=== PATIENT | female | born 1960 | race Hispanic/Latino ===

== ENCOUNTER 2017-07-18 12:03 | Emergency (ER) | payer MEDICARE ==
[2017-07-18 12:03] VITALS: BMI 29.2
[2017-07-18 12:12] VITALS: TEMP 98.2
[2017-07-18] MEDS ORDERED: Albuterol-Ipratrop 3 mg / 0.5 (3 ml) UD IH STA (13:07)
[2017-07-18] MEDS ORDERED: Albuterol-Ipratrop 3 mg / 0.5 (3 ml) UD ONE (13:21)
--- NOTE | 2017-07-18 14:47 | C.PDOC ---
History Of Present Illness Pt c/o atraumatic left shoulder pain. Time Seen by Provider: 07/18/17 12:55 Chief Complaint (Nursing): Upper Extremity Problem/Injury History Per: Patient Onset/Duration Of Symptoms: Days (about 1 week) Current Symptoms Are (Timing): Still Present Quality: "Pain" Severity: Moderate Exacerbating Factor(s): Movement Additional History Per: Prior Records Past Medical History Reviewed: Historical Data, Nursing Documentation, Vital Signs Vital Signs: Last Vital Signs Temp 98.2 F 07/18/17 12:07 Pulse 85 07/18/17 12:07 Resp 18 07/18/17 12:07 BP 107/74 07/18/17 12:07 Pulse Ox 94 L 07/18/17 12:07 - Medical History PMH: Arthritis (left shoulder), Asthma, Bronchitis, COPD, Diabetes, Emphysema, Gall Bladder Disease (cholecysectomy), Hypercholesterolemia, Pneumonia, TIA Surgical History: Cholecystectomy - [facility] Procedures BILAT ENDOS OCC TUBE NEC (04/09/99) ESOPHAGOGASTRODUODENOSCOPY [EGD] W/CLOSED BIOPSY (05/01/06) INJECT/INFUSE NEC (05/04/06) INTRODUCTION OF SERUM/TOX/VACCINE INTO MUSCLE, PERC APPROACH (11/11/15) Family History: States: [place] (brother a short while ago) - Social History Hx Tobacco Use: Yes Hx Alcohol Use: No Hx Substance Use: No - Immunization History Hx Tetanus Toxoid Vaccination: No Hx Influenza Vaccination: Yes Hx Pneumococcal Vaccination: Yes Review Of Systems Except As Marked, All Systems Reviewed And Found Negative. Constitutional: Negative for: Fever, Weakness Cardiovascular: Negative for: Chest Pain Respiratory: Positive for: Wheezing. Negative for: Hemoptysis Gastrointestinal: Negative for: Vomiting, Abdominal Pain Musculoskeletal: Positive for: Shoulder Pain (left). Negative for: Neck Pain Skin: Negative for: Rash Neurological: Negative for: Weakness, Numbness Physical Exam - Physical Exam Appears: Non-toxic, No Acute Distress Skin: Normal Color, Warm, Dry, No Rash Head: Atraumatic, Normacephalic Eye(s): bilateral: Normal Inspection, PERRL, EOMI Neck: Normal ROM, Supple Cardiovascular: Rhythm Regular Respiratory: No Accessory Muscle Use, Wheezing (mild scattered) Gastrointestinal/Abdominal: Soft, No Tenderness Back: No CVA Tenderness Extremity: No Tenderness, No Pedal Edema, No Calf Tenderness, No Deformity, No Swelling Extremity: Left: Limited ROM To Joint (Shoulder, due to pain.), Bilateral: Normal Color And Temperature Pulses: Left Radial: Normal Neurological/Psych: Oriented x3, Normal Motor, Normal Sensation ED Course And Treatment O2 Sat by Pulse Oximetry: 94 Pulse Ox Interpretation: Normal - Radiology CXR: Interpreted by Me, Viewed By Me CXR Interpretation: Yes: No Acute Disease Progress Note: Pt was placed in an left arm sling by me. Progress - Interventions Interventions:: Observation - Medications Administered Oral: Corticosteriod Inhaled nebulized: Anticholinergic, Beta-2 agonist - Data Reviewed Data Reviewed: Diagnostic imaging, Old records - Patient Status Patient status: Mostly improved - Continuity of Care Discussed patient case with:: Patient, ED Nurse - Patient Plan Patient Plan: Discharge, F/U with PCP, Continue present meds Disposition Counseled Patient/Family Regarding: Studies Performed, Diagnosis, Need For Followup, Rx Given, Smoking Cessation - Disposition Referrals: Naresh Quijano MD [Staff Provider] - Mae Dhaliwal MD [Staff Provider] - Disposition: HOME/ ROUTINE Disposition Time: 14:48 Condition: STABLE Additional Instructions: Follow up with your doctor within 1-2 days. Follow up with an orthopedic surgeon. Return to the ER if you develop redness, swelling, fever, shortness of breath, worsening of symptoms or if you have any other concerns. Prescriptions: Prednisone 50 mg PO DAILY #5 tablet Instructions: Calcific Tendinitis (ED), COPD (Chronic Obstructive Pulmonary Disease) (ED) Forms: [employer] ([place]) - Clinical Impression Clinical Impression: COPD (chronic obstructive pulmonary disease), Calcific tendinitis of left shoulder
[2017-07-18 14:59] VITALS: BP 123/70; PULSE 81; RESP 20; O2SAT 92
--- NOTE | 2017-07-18 16:01 | RAD ---
PROCEDURE: CHEST RADIOGRAPH, 1 VIEW HISTORY: Wheezing, left shoulder pain COMPARISON: 11/11/2015. FINDINGS: LUNGS: Clear. PLEURA: No pneumothorax or pleural fluid seen. CARDIOVASCULAR: No radiographic findings to suggest acute or significant cardiovascular disease. OSSEOUS STRUCTURES: No significant abnormalities. VISUALIZED UPPER ABDOMEN: Normal. OTHER FINDINGS: None. IMPRESSION: No active disease. No acute/significant interval changes.
== END 2017-07-18 14:59 | disposition home or self-care (01) ==
LOC: C.ER 12:03
DX: M75.32 Calcific tendinitis of left shoulder (principal); J44.9 Chronic obstructive pulmonary disease, unspecified; E11.9 Type 2 diabetes mellitus without complications; E78.00 Pure hypercholesterolemia, unspecified; M19.012 Primary osteoarthritis, left shoulder

== ENCOUNTER 2017-11-27 16:21 | Observation (INO) | payer MEDICARE ==
[2017-11-27 16:22] VITALS: BMI 29.2
[2017-11-27] MEDS ORDERED: Albuterol-Ipratrop 3 mg / 0.5 (3 ml) UD INH STA ×2 (17:02→18:43)
[2017-11-27 17:27] LABS: BASO # 0.1 K/uL (0.0-0.2); BASO % 0.7 % (0.0-2.0); EOS # 0.4 K/uL (0.0-0.7); EOS % 2.3 % (0.0-4.0); HEMOGLOBIN 14.3 g/dL (11.0-16.0); LYMPH # 4.7 K/uL (1.0-4.3); LYMPH % 26.1 % (20.0-40.0); MEAN CORPUSCULAR HEMOGLOBIN 30.1 pg (27.0-31.0); MEAN CORPUSCULAR HGB CONC 33.8 g/dL (33.0-37.0); MONO # 1.4 K/uL (0.0-0.8); MONO % 7.7 % (0.0-10.0); NEUT # 11.4 K/uL (1.8-7.0); NEUT % 63.2 % (50.0-75.0); NRBC % 0.1 % (0.0-2.0); RBC 4.75 Mil/uL (3.80-5.20); RED CELL DISTRIBUTION WIDTH 14.5 % (11.5-14.5); WHITE BLOOD COUNT 18.1 K/uL (4.8-10.8)
[2017-11-27 17:28] LABS: PROTHROMBIN TIME 10.7 SECONDS (9.7-12.2)
[2017-11-27 17:40] LABS: BLOOD UREA NITROGEN 11 mg/dL (7-17); GFR AFRICAN-AMERICAN > 60; GFR NON-AFRICAN AMERICAN > 60
[2017-11-27 17:41] LABS: ALB/GLOB RATIO 1.2 (1.0-2.1); ALBUMIN 3.7 g/dL (3.5-5.0); ALT/SGPT 25 U/L (9-52); AST/SGOT 17 U/L (14-36); CALCIUM 8.6 mg/dl (8.6-10.4)
[2017-11-27] MEDS ORDERED: Albuterol-Ipratrop 3 mg / 0.5 (3 ml) UD ONE (17:46)
[2017-11-27 17:52] LABS: B-TYPE NATRIURETIC PEPTIDE 182 pg/mL (0-900)
[2017-11-27 17:54] LABS: ABG ALLEN TEST POS; ARTERIAL BLOOD GAS HCO3 27.8 mmol/L (21-28); ARTERIAL BLOOD GAS O2 SAT 99.3 % (95-98); ARTERIAL BLOOD GAS PCO2 52 mm/Hg (35-45); ARTERIAL BLOOD GAS PH 7.37 (7.35-7.45); ARTERIAL BLOOD GAS PO2 218 mm/Hg (80-100); ARTERIAL BLOOD GAS TCO2 31.7 mmol/L (22-28)
--- NOTE | 2017-11-27 18:00 | C.PDOC ---
History Of Present Illness 57 y/o female, with history of COPD, presents to the ER complaining of shortness of breath which has been worsening over the past week. Patient reports that she still smokes a pack of cigarettes each day. Patient reports that she has been using steroids and a Z-Pack for the past 3 days. She has been undergoing 4 nebulizer treatments each day and 2 amps each day for the past 2 days. Patient does not have any other complaints. Time Seen by Provider: 11/27/17 16:44 Chief Complaint (Nursing): Respiratory Distress History Per: Patient History/Exam Limitations: no limitations Onset/Duration Of Symptoms: Days Severity: Moderate Past Medical History Reviewed: Historical Data, Nursing Documentation, Vital Signs Vital Signs: Last Vital Signs Temp 98 F 11/27/17 16:48 Pulse 81 11/27/17 18:35 Resp 18 11/27/17 18:35 BP 99/45 L 11/27/17 18:35 Pulse Ox 92 L 11/27/17 18:46 - Medical History PMH: Arthritis (left shoulder), Asthma, Bronchitis, COPD, Diabetes, Emphysema, Gall Bladder Disease (cholecysectomy), Hypercholesterolemia, Pneumonia, TIA Denies: Chronic Kidney Disease Surgical History: Cholecystectomy - [facility] Procedures BILAT ENDOS OCC TUBE NEC (04/09/99) ESOPHAGOGASTRODUODENOSCOPY [EGD] W/CLOSED BIOPSY (05/01/06) INJECT/INFUSE NEC (05/04/06) INTRODUCTION OF SERUM/TOX/VACCINE INTO MUSCLE, PERC APPROACH (11/11/15) Family History: States: [place] (brother a short while ago) - Social History Hx Tobacco Use: Yes Hx Alcohol Use: No Hx Substance Use: No - Immunization History Hx Tetanus Toxoid Vaccination: No Hx Influenza Vaccination: Yes Hx Pneumococcal Vaccination: Yes Review Of Systems Except As Marked, All Systems Reviewed And Found Negative. Constitutional: Negative for: Fever, Chills Respiratory: Positive for: Shortness of Breath. Negative for: Cough Physical Exam - Physical Exam Appears: Non-toxic, No Acute Distress Skin: Normal Color, Warm Head: Atraumatic, Normacephalic Eye(s): bilateral: Normal Inspection, PERRL Nose: Normal Oral Mucosa: Moist Neck: Supple Chest: Symmetrical Cardiovascular: Rhythm Regular Respiratory: Normal Breath Sounds, Decreased Breath Sounds, No Accessory Muscle Use, No Rales, No Rhonchi, Wheezing (expiratory wheezing) Extremity: Normal ROM Neurological/Psych: Oriented x3, Normal Speech, Normal Cognition, Normal Motor, Normal Sensation ED Course And Treatment - Laboratory Results Result Diagrams: 11/27/17 17:14 11/27/17 17:14 Lab Interpretation: Abnormal ([id number] leukocytosis, prob steroid related. ABG without C02 retention, chronically compenated) ECG: Interpreted By Me ECG Rhythm: Sinus Rhythm ECG Interpretation: Normal Rate From EC O2 Sat by Pulse Oximetry: 92 Pulse Ox Interpretation: Abnormal - Radiology CXR: Interpreted by Me CXR Interpretation: Yes: Other (+ mild CHF, + hyperinflated) Progress Note: lasix 20 IV, Vapotherm, Solumedrol IV, Duoneb treatments. Reevaluation Time: 18:44 Reassessment Condition: Improved - Physician Consult Information Outcome Of Conversation: 1835: d/w Hospitalist- Dr. Benitez mejias to admit to Dr. Cano- [place] [place]. Critical Care Time - Critical Care Note Total Time (in mins): 90 Documented critical care: time excludes all time spent performing seperately billable procedures. Medical Decision Making Medical Decision Making: copd exacerbation, still smoking 1 ppd mild leukocytosis prob due to steroids started 3 days ago Hold abx as pt already on Z-pack x 3 days. Mild CHF noted on CXR- lasix given re-eval after diuresis 03/22: normal myocardial perfusion scan, normal EJF w Dr. Palacios. Disposition Doctor Will See Patient In The: Hospital Counseled Patient/Family Regarding: Studies Performed, Diagnosis - Disposition Disposition: HOSPITALIZED Disposition Time: 18:45 Condition: FAIR Forms: [employer] (Yakut) - Clinical Impression Clinical Impression: COPD exacerbation, Congestive heart failure - Scribe Statement The provider has reviewed the documentation as recorded by the Rickey Barlow Provider Attestation: All medical record entries made by the Scribe were at my direction and personally dictated by me. I have reviewed the chart and agree that the record accurately reflects my personal performance of the history, physical exam, medical decision making, and the department course for this patient. I have also personally directed, reviewed, and agree with the discharge instructions and disposition.
--- NOTE | 2017-11-27 19:25 | CP.PCM.HP ---
<Delmis Rojas - Last Filed: 11/28/17 05:07> History of Present Illness - History of Present Illness History of Present Illness: Medicine Note for Hospitalist Service CC: Shortness of breath HPI: Patient is a 57-year-old female with a PMHx of COPD, Asthma, and Bronchitis who presents to the ED with complaints of progressive shortness of breath. Patient states her symptoms started a week ago and have been getting worse since then. She felt feverish on so on Monday she saw her PMD, Dr. Quijano. Her PMD gave her steroids and a Z-pack which she has been using for the past 3 days. She has been undergoing 4 nebulizer treatments each day and using her albuterol inhaler every few hours for the past 2 days. At baseline she does not use her albuterol or any nebulizer treatment. Patient denies any sick contacts. Reports receiving her yearly flu shot. Patient has been coughing up dark yellow/green phlegm for the past week. Denies any home O2 use. Patient uses 4 pillows to sleep at night for the past few weeks and says that if she sleeps flat, she feels like she will suffocate. She also has leg swelling for the past few months. Prior to this exacerbation, she could breathe normally at rest, but would be short of breath with minimal exertion, walking 1-2 blocks. Denied fever, chills, headache, chest pain, abdominal pain, n/v/d/c, or urinary symptoms. PMHx: COPD, Asthma, and Bronchitis, TIA (2008) PSHx: Denied Meds: As per JAN, reviewed and confirmed All: NKDA SHx: Admits smoking 1 PPD x 15-20 years (no intention of stopping), social ETOH use, no illicit drug use FHx: Unremarkable PMD: Macie Cardio: Philip Pulm: Dr. Rogel Present on Admission - Present on Admission Any Indicators Present on Admission: No Past Patient History - Infectious Disease Hx of Infectious Diseases: None - Past Medical History & Family History Past Medical History?: Yes - Past Social History Smoking Status: Light Smoker < 10 Cigarettes Daily - CARDIAC Hx Hypercholesterolemia: Yes - PULMONARY Hx Asthma: Yes Hx Bronchitis: Yes Hx Chronic Obstructive Pulmonary Disease (COPD): Yes Hx Emphysema: Yes Hx Pneumonia: Yes - NEUROLOGICAL Hx Transient Ischemic Attacks (TIA): Yes - HEENT Hx HEENT Problems: Yes Hx Glaucoma: Yes - RENAL Hx Chronic Kidney Disease: No - ENDOCRINE/METABOLIC Hx Endocrine Disorders: Yes Hx Diabetes Mellitus Type 2: Yes (when she was ) Other/Comment: Gestational Diabetes - HEMATOLOGICAL/ONCOLOGICAL Hx Blood Disorders: No - INTEGUMENTARY Hx Dermatological Problems: Yes Hx Psoriasis: Yes - MUSCULOSKELETAL/RHEUMATOLOGICAL Hx Arthritis: Yes (left shoulder) - GASTROINTESTINAL Hx Gall Bladder Disease: Yes (cholecysectomy) - GENITOURINARY/GYNECOLOGICAL Hx Genitourinary Disorders: No - PSYCHIATRIC Hx Substance Use: No - SURGICAL HISTORY Hx Cholecystectomy: Yes - ANESTHESIA Hx Anesthesia: Yes Hx Anesthesia Reactions: No Meds Allergies/Adverse Reactions: Allergies Allergy/AdvReac Type Severity Reaction Status Date / Time No Known Allergies Allergy Verified 10/09/16 13:56 Physical Exam - Constitutional Appears: No Acute Distress - Head Exam Head Exam: NORMAL INSPECTION, NORMOCEPHALIC - Eye Exam Eye Exam: EOMI, Normal appearance, PERRL Pupil Exam: NORMAL ACCOMODATION - ENT Exam ENT Exam: Mucous Membranes Moist - Respiratory Exam Respiratory Exam: Wheezes, NORMAL BREATHING PATTERN. absent: Rales, Rhonchi - Cardiovascular Exam Cardiovascular Exam: REGULAR RHYTHM - GI/Abdominal Exam GI & Abdominal Exam: Normal Bowel Sounds, Soft. absent: Distended, Tenderness - Extremities Exam Extremities exam: Positive for: normal inspection, pedal edema (+1 bilaterally ) , pedal pulses present. Negative for: tenderness - Neurological Exam Neurological exam: Alert, CN II-XII Intact, Oriented x3 - Skin Skin Exam: Dry, Intact, Normal Color, Warm Results - Vital Signs Recent Vital Signs: Last Vital Signs Temp 98 F 11/27/17 16:48 Pulse 81 11/27/17 18:35 Resp 18 11/27/17 18:35 BP 99/45 L 11/27/17 18:35 Pulse Ox 92 L 11/27/17 18:49 - Labs Result Diagrams: 11/27/17 17:14 11/27/17 17:14 Labs: Laboratory Results - last 24 hr 11/27/17 11/27/17 11/27/17 17:01 17:14 17:14 WBC 18.1 H RBC 4.75 Hgb 14.3 Hct 42.3 MCV 89.0 MCH 30.1 MCHC 33.8 RDW 14.5 Plt Count 338 D MPV 8.0 Neut % (Auto) 63.2 Lymph % (Auto) 26.1 Lake % (Auto) 7.7 Eos % (Auto) 2.3 Baso % (Auto) 0.7 Neut # 11.4 H Lymph # 4.7 H Lake # 1.4 H Eos # 0.4 Baso # 0.1 PT 10.7 INR 1.0 APTT 31 Puncture Site pCO2 pO2 HCO3 ABG pH ABG Total CO2 ABG O2 Saturation ABG Base Excess Eladio Test ABG Potassium A-a O2 Difference Respiratory Index Glucose Lactate Liter Flow FiO2 Sodium Potassium Chloride Carbon Dioxide Anion Gap BUN Creatinine Est GFR ( Amer) Est GFR (Non-Af Amer) Random Glucose Calcium Total Bilirubin AST ALT Alkaline Phosphatase Troponin I NT-Pro-B Natriuret Pep Total Protein Albumin Globulin Albumin/Globulin Ratio Arterial Blood Potassium Influenza Typ A,B (EIA) Negative for flu a/b 11/27/17 11/27/17 17:14 17:51 WBC RBC Hgb Hct MCV MCH MCHC RDW Plt Count MPV Neut % (Auto) Lymph % (Auto) Lake % (Auto) Eos % (Auto) Baso % (Auto) Neut # Lymph # Lake # Eos # Baso # PT INR APTT Puncture Site Rr pCO2 52 H pO2 218 H HCO3 27.8 ABG pH 7.37 ABG Total CO2 31.7 H ABG O2 Saturation 99.3 H ABG Base Excess 3.6 H Eladio Test Pos ABG Potassium 2.9 L A-a O2 Difference 430.0 Respiratory Index 2.0 Glucose 95 Lactate 1.0 Liter Flow 15.0 FiO2 100.0 Sodium 138 139.0 Potassium 3.4 L Chloride 100 107.0 Carbon Dioxide 33 H Anion Gap 9 L BUN 11 Creatinine 0.6 L Est GFR ( Amer) > 60 Est GFR (Non-Af Amer) > 60 Random Glucose 101 Calcium 8.6 Total Bilirubin 0.3 AST 17 ALT 25 Alkaline Phosphatase 86 Troponin I < 0.0120 NT-Pro-B Natriuret Pep 182 Total Protein 6.8 Albumin 3.7 Globulin 3.0 Albumin/Globulin Ratio 1.2 Arterial Blood Potassium 2.9 L Influenza Typ A,B (EIA) Assessment & Plan - Assessment and Plan (Free Text) Assessment: Patient is a 57-year-old female with a PMHx of COPD, Asthma, and Bronchitis who presents to the ED with complaints of progressive shortness of breath. Plan: COPD Exacerbation CXR: no infiltrate, consolidation noted Negative Flu Meds: Solumedrol 40mg Q8H (will taper based on clinical exam) Duonebs Q6H LESLEY, Albuterol QR3 prn Pulmicort Q12, Singulair 10mg PO QHS Doxycycline 100mg PO Q12 x 5 days Probable Underlying CHF MATHEW, No JVD noted, no S3 noted on exam, +1 BL LLE Edema, sleeps on 2 BNP- 182 CXR: no infiltrate, consolidation noted F/U ECHO: Leukocytosis 2/2 oral steroids provided by PMD Hx TIA Prophylactic Measures GI PPX: Pepcid 20mg PO BID DVT PPX: SCDs, Lovenox 40mg SC PT Eval DW Dr. Cano, Delmis Rojas DO, PGY-1 <Hammad Cano P - Last Filed: 11/28/17 07:16> Results - Vital Signs Recent Vital Signs: Last Vital Signs Temp 97.9 F 11/27/17 23:10 Pulse 73 11/28/17 00:00 Resp 20 11/28/17 05:57 BP 106/66 11/27/17 23:10 Pulse Ox 95 11/28/17 05:57 - Labs Result Diagrams: 11/28/17 06:05 11/28/17 06:05 Labs: Laboratory Results - last 24 hr 11/27/17 11/27/17 11/27/17 17:01 17:14 17:14 WBC 18.1 H RBC 4.75 Hgb 14.3 Hct 42.3 MCV 89.0 MCH 30.1 MCHC 33.8 RDW 14.5 Plt Count 338 D MPV 8.0 Neut % (Auto) 63.2 Lymph % (Auto) 26.1 Lake % (Auto) 7.7 Eos % (Auto) 2.3 Baso % (Auto) 0.7 Neut # 11.4 H Lymph # 4.7 H Lake # 1.4 H Eos # 0.4 Baso # 0.1 PT 10.7 INR 1.0 APTT 31 Puncture Site pCO2 pO2 HCO3 ABG pH ABG Total CO2 ABG O2 Saturation ABG Base Excess Eladio Test ABG Potassium A-a O2 Difference Respiratory Index Glucose Lactate Liter Flow FiO2 Sodium Potassium Chloride Carbon Dioxide Anion Gap BUN Creatinine Est GFR ( Amer) Est GFR (Non-Af Amer) Random Glucose Calcium Phosphorus Magnesium Total Bilirubin AST ALT Alkaline Phosphatase Troponin I NT-Pro-B Natriuret Pep Total Protein Albumin Globulin Albumin/Globulin Ratio Arterial Blood Potassium Urine Color Urine Clarity Urine pH Ur Specific [place] Urine Protein Urine Glucose (UA) Urine Ketones Urine Blood Urine Nitrate Urine Bilirubin Urine Urobilinogen Ur Leukocyte Esterase Urine WBC (Auto) Influenza Typ A,B (EIA) Negative for flu a/b 11/27/17 11/27/17 11/27/17 17:14 17:51 21:24 WBC RBC Hgb Hct MCV MCH MCHC RDW Plt Count MPV Neut % (Auto) Lymph % (Auto) Lake % (Auto) Eos % (Auto) Baso % (Auto) Neut # Lymph # Lake # Eos # Baso # PT INR APTT Puncture Site Rr pCO2 52 H pO2 218 H HCO3 27.8 ABG pH 7.37 ABG Total CO2 31.7 H ABG O2 Saturation 99.3 H ABG Base Excess 3.6 H Eladio Test Pos ABG Potassium 2.9 L A-a O2 Difference 430.0 Respiratory Index 2.0 Glucose 95 Lactate 1.0 Liter Flow 15.0 FiO2 100.0 Sodium 138 139.0 Potassium 3.4 L Chloride 100 107.0 Carbon Dioxide 33 H Anion Gap 9 L BUN 11 Creatinine 0.6 L Est GFR ( Amer) > 60 Est GFR (Non-Af Amer) > 60 Random Glucose 101 Calcium 8.6 Phosphorus Magnesium Total Bilirubin 0.3 AST 17 ALT 25 Alkaline Phosphatase 86 Troponin I < 0.0120 NT-Pro-B Natriuret Pep 182 Total Protein 6.8 Albumin 3.7 Globulin 3.0 Albumin/Globulin Ratio 1.2 Arterial Blood Potassium 2.9 L Urine Color Straw Urine Clarity Clear Urine pH 5.0 Ur Specific [place] 1.006 Urine Protein Negative Urine Glucose (UA) Normal Urine Ketones Negative Urine Blood Negative Urine Nitrate Negative Urine Bilirubin Negative Urine Urobilinogen Normal Ur Leukocyte Esterase Neg Urine WBC (Auto) < 1 Influenza Typ A,B (EIA) 11/28/17 11/28/17 06:05 06:05 WBC 11.0 H RBC 4.64 Hgb 14.0 Hct 41.7 MCV 89.9 MCH 30.3 MCHC 33.7 RDW 14.0 Plt Count 270 MPV 8.4 Neut % (Auto) 89.9 H Lymph % (Auto) 8.5 L Lake % (Auto) 1.2 Eos % (Auto) 0.0 Baso % (Auto) 0.4 Neut # 9.9 H Lymph # 0.9 L Lake # 0.1 Eos # 0.0 Baso # 0.0 PT INR APTT Puncture Site pCO2 pO2 HCO3 ABG pH ABG Total CO2 ABG O2 Saturation ABG Base Excess Eladio Test ABG Potassium A-a O2 Difference Respiratory Index Glucose Lactate Liter Flow FiO2 Sodium 136 Potassium 4.6 Chloride 97 L Carbon Dioxide 31 H Anion Gap 12 BUN 18 H Creatinine 0.7 Est GFR ( Amer) > 60 Est GFR (Non-Af Amer) > 60 Random Glucose 140 H Calcium 8.3 L Phosphorus 4.6 H Magnesium 1.7 Total Bilirubin 0.7 AST 14 ALT 25 Alkaline Phosphatase 84 Troponin I NT-Pro-B Natriuret Pep Total Protein 6.4 Albumin 3.5 Globulin 2.9 Albumin/Globulin Ratio 1.2 Arterial Blood Potassium Urine Color Urine Clarity Urine pH Ur Specific [place] Urine Protein Urine Glucose (UA) Urine Ketones Urine Blood Urine Nitrate Urine Bilirubin Urine Urobilinogen Ur Leukocyte Esterase Urine WBC (Auto) Influenza Typ A,B (EIA) Attending/Attestation - Attestation I have personally seen and examined this patient.: Yes I have fully participated in the care of the patient.: Yes I have reviewed all pertinent clinical information: Yes Notes (Text): Assessment * SOB likely from COPD emphysema, patient approaching moderate to severe persisting disease, suspected corpulmonale * Continues to smoke 1PPD Plan * Nebs, steroid, abx * Echo * 1-2 days when symptoms better will need to be assessed for home O2 requirement , currently needing about 30-40% fio2 * GI/DVT prophylaxis * Counselled about tobacco cessation, will need reinforcement * Patient follows Dr. Rogel, will consult for COPD exacerbation.
[2017-11-27] MEDS ORDERED: Acetylcysteine 20% Inhal Soln (4ml) INH ONE (20:43)
[2017-11-27] MEDS: Albuterol-Ipratrop 3 mg / 0.5 (3 ml) UD INH SCH (21:01)
[2017-11-27] MEDS ORDERED: Azithromycin 500 MG in Sodium Chloride 0.9% 250 ML IVPB STA (21:06)
[2017-11-27] MEDS ORDERED: Albuterol 0.042% Inhal Sol (1.25 mg/3 mL) UD INH PRN (21:12)
[2017-11-27] MEDS ORDERED: Potassium Chloride 20 mEq ER Tab PO ONE (21:25)
[2017-11-27 21:33] LABS: URINE BILIRUBIN NEGATIVE (NEGATIVE); URINE BLOOD NEGATIVE (NEGATIVE); URINE CLARITY Clear (Clear); URINE COLOR Straw (YELLOW); URINE GLUCOSE (UA) NORMAL (Normal); URINE LEUKOCYTE ESTERASE NEG Leu/uL (Negative); URINE PROTEIN NEGATIVE (NEGATIVE); URINE UROBILINOGEN NORMAL mg/dL (0.2-1.0)
[2017-11-28] MEDS: MethylPREDNISolone 40 mg Vial IVP SCH ×2 (00:18→10:36)
[2017-11-28 01:26] VITALS: RESP 20
[2017-11-28] MEDS: Albuterol-Ipratrop 3 mg / 0.5 (3 ml) UD INH SCH ×4 (01:44→19:21)
[2017-11-28 06:17] LABS: BASO % 0.4 % (0.0-2.0); LYMPH # 0.9 K/uL (1.0-4.3); LYMPH % 8.5 % (20.0-40.0); MEAN CELL VOLUME 89.9 fL (81.0-99.0); MEAN CORPUSCULAR HEMOGLOBIN 30.3 pg (27.0-31.0); MEAN CORPUSCULAR HGB CONC 33.7 g/dL (33.0-37.0); MEAN PLATELET VOLUME 8.4 fL (7.2-11.7); MONO # 0.1 K/uL (0.0-0.8); MONO % 1.2 % (0.0-10.0); NEUT # 9.9 K/uL (1.8-7.0); NEUT % 89.9 % (50.0-75.0); NRBC % 0.1 % (0.0-2.0); PLATELET COUNT 270 K/uL (130-400); RBC 4.64 Mil/uL (3.80-5.20)
[2017-11-28 06:33] LABS: ALB/GLOB RATIO 1.2 (1.0-2.1); ALBUMIN 3.5 g/dL (3.5-5.0); ALT/SGPT 25 U/L (9-52); AST/SGOT 14 U/L (14-36); BLOOD UREA NITROGEN 18 mg/dL (7-17); CALCIUM 8.3 mg/dl (8.6-10.4); GFR AFRICAN-AMERICAN > 60; GFR NON-AFRICAN AMERICAN > 60
[2017-11-28] MEDS: Budesonide 0.5 mg/2 ml Inhal Susp UD INH SCH ×2 (07:47→19:21)
[2017-11-28] MEDS ORDERED: Fluticasone-Salmeterol 500-50mcg Diskus INH SCH (08:00)
--- NOTE | 2017-11-28 08:33 | RAD ---
Chest x-ray single frontal view History: Shortness of breath. Comparison: 10/16/2017 Findings: Mild venous congestion. Patchy increased markings at both lung bases. Bilateral hilar prominence. Heart size within normal limits. Biapical pleural thickening. Calcific tendinopathy of the left proximal humerus. Small nodular density projecting over the left upper to mid lung zone. Impression: Mild venous congestion. Patchy increased markings at both lung bases. Bilateral hilar prominence.
[2017-11-28 09:55] LABS: ANISOCYTOSIS SLIGHT; BANDS 1 % (0-2); LYMPHOCYTE 9 % (20-40); MONOCYTE 2 % (0-10); NEUTROPHIL 88 % (50-75); PLATELET ESTIMATE NORMAL (NORMAL); POLYCHROMIC SLIGHT; TOTAL CELLS COUNTED 100
[2017-11-28] MEDS ORDERED: Enoxaparin 40 mg Syringe SC SCH (10:00)
[2017-11-28] MEDS ORDERED: Azithromycin 500 MG in Sodium Chloride 0.9% 250 ML IVPB SCH (10:00)
[2017-11-28] MEDS ORDERED: MethylPREDNISolone 40 mg Vial IVP SCH ×2 (12:07→18:30)
--- NOTE | 2017-11-28 13:33 | CP.PCM.PN ---
Subjective - Date & Time of Evaluation Date of Evaluation: 11/28/17 Time of Evaluation: 08:30 - Subjective Subjective: Patient was seen and examined at bedside. Patient reports feeling worse than yesterday. The patient is tolerating diet with no complaints. The patient is able to use the restroom with no complaint. The patient denies any chest pain, lightheadedness, dizziness, syncopal episodes, fevers, chills, nasuea, vomiting , headaches, numbness or tingling in the hands or feet, or any other complaints. Objective - Vital Signs/Intake and Output Vital Signs (last 24 hours): Temp Pulse Resp BP Pulse Ox 97.7 F 82 20 123/61 91 L 11/28/17 07:00 11/28/17 12:06 11/28/17 07:00 11/28/17 07:00 11/28/17 12:06 Intake and Output: 11/28/17 11/28/17 06:59 18:59 Intake Total 200 Output Total 350 Balance -150 - Medications Medications: Current Medications Albuterol Sulfate (Albuterol 0.042% Inhal Delmy (1.25mg/3ml) Ud) 1.25 mg INH RQ3 PRN PRN Reason: Wheezing Albuterol/Ipratropium (Duoneb 3 Mg/0.5 Mg (3 Ml) Ud) 3 ml INH RQ6 [facility] Last Admin: 11/28/17 13:05 Dose: 3 ml Budesonide (Pulmicort Respules) 0.5 mg INH RQ12 [facility] Last Admin: 11/28/17 07:47 Dose: 0.5 mg Doxycycline Hyclate (Doryx) 100 mg PO Q12H [facility] Last Admin: 11/28/17 10:37 Dose: 100 mg Enoxaparin Sodium (Lovenox) 40 mg SC DAILY [facility] Last Admin: 11/28/17 10:38 Dose: 40 mg Famotidine (Pepcid) 20 mg PO BID [facility] Last Admin: 11/28/17 10:37 Dose: 20 mg Methylprednisolone (Solu-Medrol) 60 mg IVP Q8H [facility] Montelukast Sodium (Singulair) 10 mg PO HS [facility] Last Admin: 11/27/17 23:09 Dose: Not Given Fluticasone/Salmeterol (Advair Diskus 100/50) 1 puff INH RQ12 [facility] Tiotropium [place] (Spiriva) 18 mcg INH RQ24 [facility] - Labs Labs: 11/28/17 06:05 11/28/17 06:05 PT 10.7 SECONDS (9.7-12.2) 11/27/17 17:14 INR 1.0 11/27/17 17:14 APTT 31 SECONDS (21-34) 11/27/17 17:14 - Head Exam Head Exam: ATRAUMATIC, NORMAL INSPECTION, NORMOCEPHALIC - Eye Exam Eye Exam: EOMI, Normal appearance, PERRL. absent: Periorbital tenderness Pupil Exam: NORMAL ACCOMODATION, PERRL. absent: Irregular, Unequal - ENT Exam ENT Exam: Mucous Membranes Moist, Normal Exam, Normal Oropharynx - Neck Exam Neck Exam: absent: Lymphadenopathy, Thyromegaly - Respiratory Exam Respiratory Exam: Clear to Ausculation Bilateral, NORMAL BREATHING PATTERN. absent: Prolonged Expiratory Phase, Respiratory Distress - Cardiovascular Exam Cardiovascular Exam: REGULAR RHYTHM, RRR, +S1, +S2. absent: Gallop, Rubs - GI/Abdominal Exam GI & Abdominal Exam: Soft, Normal Bowel Sounds. absent: Rigid, Hyperactive Bowel Sounds - Extremities Exam Extremities Exam: Full ROM, Normal Inspection. absent: Joint Swelling, Pedal Edema - Back Exam Back Exam: NORMAL INSPECTION. absent: CVA tenderness (L), CVA tenderness (R), paraspinal tenderness - Neurological Exam Neurological Exam: Alert, Awake, CN II-XII Intact, Normal Gait, Oriented x3 - Psychiatric Exam Psychiatric exam: Normal Affect, Normal Mood - Skin Skin Exam: Dry, Intact, Normal Color, Warm Assessment and Plan - Assessment and Plan (Free Text) Assessment: Patient is a 57-year-old female with a PMHx of COPD, Asthma, and Bronchitis who presents to the ED with complaints of progressive shortness of breath. Plan: COPD Exacerbation CXR: no infiltrate, consolidation noted Negative Flu Pulmonary consulted( Dr. Rogel). Will f/u with results. Patient at the time of the examination didn't seem motivated to quit smoking. Meds: Solumedrol 40mg Q8H (will taper based on clinical exam) Duonebs Q6H [facility], Albuterol QR3 prn Pulmicort Q12, Singulair 10mg PO QHS Doxycycline 100mg PO Q12 x 5 days Probable Underlying CHF MATHEW, No JVD noted, no S3 noted on exam, +1 BL LLE Edema, sleeps on 2 BNP- 182 CXR: no infiltrate, consolidation noted F/U ECHO Taken. Will f/u with final results. Cardiology (Dr. Palacios) consulted. Will f/u with results. Leukocytosis 2/2 oral steroids provided by PMD Steroids changed Hx TIA Prophylactic Measures GI PPX: Pepcid 20mg PO BID DVT PPX: SCDs, Lovenox 40mg SC PT Eval
[2017-11-28 15:41] VITALS: BP 114/60; PULSE 82; TEMP 97.9; O2SAT 93
[2017-11-28] MEDS ORDERED: Promethazine DM 6.25 mg-15 mg/5 ml Syrup PO PRN (16:42)
--- NOTE | 2017-11-28 16:42 | CP.PCM.CON ---
History of Present Illness - History of Present Illness History of Present Illness: Patient is a 57 year old female with history of COPD who was admitted to the ED for 1 week history of progressively worsening shortness of breath. She reportedly tried steroid and Z pack prescribed by her PMD for 3 days without improvement. She also had 4 nebulizer treatments and 2 Amps daily for the past 2 days, which did not help her symptoms either. She denies chest pain, but states she feels pressure, heaviness and cramping in her chest when she is short of breath. She states her cough is productive of thick yellow green sputum. Denies any blood in cough. Admits she smokes a pack of cigarettes daily. She denies fevers, chills, abdominal pain, nausea, vomiting, diarrhea, leg pain. She does not use oxygen at home. PMH: arthritis, asthma, bronchitis, COPD, emphysema, borderline DM (not on meds ) , emphysema, pneumonia, TIA PSH: cholecystectomy, total hysterectomy Social hx: smokes 1ppd all her life, (+) social EtOH use, (-) illicit drug use. Family hx: father had scrotal cancer. Family hx of PA - her mother, brother age 45 and sister age 59 of PA. Family history of COPD and emphysema. Meds: see JAN Allergies: NKDA PMD: Dr. Quijano Cardio: Dr. Palacios PE: Vital signs Temp 98 HR 81 BP 102/64 RR 20 Pulse ox 95% on 3L O2 via NC Respiratory: Wheezing diffusely in all lung [place]. Cardiovascular: Regular, rate and rhythm. Assessment and plan Patient is a 57 year old female with history of COPD, asthma, bronchitis, emphysema, smokes 1ppd, who was admitted for 1 week history of worsening shortness of breath associated with pressure, heaviness and cramping in her chest and cough productive of thick yellow-green sputum, despite using steroids , Zpack, nebulizer treatments. Pulmonology consulted for evaluation of dyspnea. Acute COPD exacerbation 95% on 3L O2 via NC. Continue to monitor O2 sat 11/27/17 CXR: Mild venous congestion. Patchy increased markings at both lung bases. Bilateral hilar prominence. ?11/27 ABG pH 7.37 pCO2 52 pO2 218 HCO3 27.8 Negative for flu a/b Meds: Solumedrol 60mg IVP Q12 Duonebs Q6 [facility], Albuterol R Q3 PRN Pulmicort 0.5mg INH Q12 Singulair 10mg PO HS Doxycycline 100mg PO Q 12 Fluticasone/Salmeterol 1 puff INH R Q12 Spiriva 18mcg INH R Q 24 Leukocytosis, likely secondary to steroid use Continue to monitor white count 11/27 WBC 18.1 -> (11/28) 11.0 Past Patient History - Infectious Disease Hx of Infectious Diseases: None - Past Medical History & Family History Past Medical History?: Yes - Past Social History Smoking Status: Light Smoker < 10 Cigarettes Daily - CARDIAC Hx Hypercholesterolemia: Yes - PULMONARY Hx Chronic Obstructive Pulmonary Disease (COPD): Yes - NEUROLOGICAL Hx Transient Ischemic Attacks (TIA): Yes - HEENT Hx HEENT Problems: Yes Hx Glaucoma: Yes - RENAL Hx Chronic Kidney Disease: No - ENDOCRINE/METABOLIC Hx Endocrine Disorders: Yes Hx Diabetes Mellitus Type 2: Yes (when she was ) Other/Comment: Gestational Diabetes - HEMATOLOGICAL/ONCOLOGICAL Hx Blood Disorders: No - INTEGUMENTARY Hx Dermatological Problems: Yes Hx Psoriasis: Yes - MUSCULOSKELETAL/RHEUMATOLOGICAL Hx Arthritis: Yes - GASTROINTESTINAL Hx Gall Bladder Disease: Yes (cholecysectomy) - GENITOURINARY/GYNECOLOGICAL Hx Genitourinary Disorders: No - PSYCHIATRIC Hx Substance Use: No - SURGICAL HISTORY Hx Cholecystectomy: Yes - ANESTHESIA Hx Anesthesia: Yes Hx Anesthesia Reactions: No Meds Allergies/Adverse Reactions: Allergies Allergy/AdvReac Type Severity Reaction Status Date / Time No Known Allergies Allergy Verified 10/09/16 13:56 - Medications Medications: Current Medications Albuterol Sulfate (Albuterol 0.042% Inhal Delmy (1.25mg/3ml) Ud) 1.25 mg INH RQ3 PRN PRN Reason: Wheezing Albuterol/Ipratropium (Duoneb 3 Mg/0.5 Mg (3 Ml) Ud) 3 ml INH RQ6 [facility] Last Admin: 11/28/17 13:05 Dose: 3 ml Budesonide (Pulmicort Respules) 0.5 mg INH RQ12 [facility] Last Admin: 11/28/17 07:47 Dose: 0.5 mg Doxycycline Hyclate (Doryx) 100 mg PO Q12H [facility] Last Admin: 11/28/17 10:37 Dose: 100 mg Enoxaparin Sodium (Lovenox) 40 mg SC DAILY [facility] Last Admin: 11/28/17 10:38 Dose: 40 mg Famotidine (Pepcid) 20 mg PO BID [facility] Last Admin: 11/28/17 10:37 Dose: 20 mg Methylprednisolone (Solu-Medrol) 60 mg IVP Q8H [facility] Montelukast Sodium (Singulair) 10 mg PO HS [facility] Last Admin: 11/27/17 23:09 Dose: Not Given Fluticasone/Salmeterol (Advair Diskus 100/50) 1 puff INH RQ12 [facility] Tiotropium [place] (Spiriva) 18 mcg INH RQ24 [facility] Results - Vital Signs Recent Vital Signs: Last Vital Signs Temp 97.9 F 11/28/17 15:38 Pulse 82 11/28/17 15:38 Resp 20 11/28/17 15:38 BP 114/60 11/28/17 15:38 Pulse Ox 93 L 11/28/17 15:38 - Labs Result Diagrams: 11/28/17 06:05 11/28/17 06:05 Labs: Laboratory Results - last 24 hr 11/27/17 11/27/17 11/27/17 17:01 17:14 17:14 WBC 18.1 H RBC 4.75 Hgb 14.3 Hct 42.3 MCV 89.0 MCH 30.1 MCHC 33.8 RDW 14.5 Plt Count 338 D MPV 8.0 Neut % (Auto) 63.2 Lymph % (Auto) 26.1 [place] % (Auto) 7.7 Eos % (Auto) 2.3 Baso % (Auto) 0.7 Neut # 11.4 H Lymph # 4.7 H [place] # 1.4 H Eos # 0.4 Baso # 0.1 Neutrophils % (Manual) Band Neutrophils % Lymphocytes % (Manual) Monocytes % (Manual) Platelet Estimate Polychromasia Anisocytosis (manual) PT 10.7 INR 1.0 APTT 31 Puncture Site pCO2 pO2 HCO3 ABG pH ABG Total CO2 ABG O2 Saturation ABG Base Excess Eladio Test ABG Potassium A-a O2 Difference Respiratory Index Glucose Lactate Liter Flow FiO2 Sodium Potassium Chloride Carbon Dioxide Anion Gap BUN Creatinine Est GFR ( Amer) Est GFR (Non-Af Amer) Random Glucose Calcium Phosphorus Magnesium Total Bilirubin AST ALT Alkaline Phosphatase Troponin I NT-Pro-B Natriuret Pep Total Protein Albumin Globulin Albumin/Globulin Ratio Arterial Blood Potassium Urine Color Urine Clarity Urine pH Ur Specific [place] Urine Protein Urine Glucose (UA) Urine Ketones Urine Blood Urine Nitrate Urine Bilirubin Urine Urobilinogen Ur Leukocyte Esterase Urine WBC (Auto) Influenza Typ A,B (EIA) Negative for flu a/b 11/27/17 11/27/17 11/27/17 17:14 17:51 21:24 WBC RBC Hgb Hct MCV MCH MCHC RDW Plt Count MPV Neut % (Auto) Lymph % (Auto) [place] % (Auto) Eos % (Auto) Baso % (Auto) Neut # Lymph # [place] # Eos # Baso # Neutrophils % (Manual) Band Neutrophils % Lymphocytes % (Manual) Monocytes % (Manual) Platelet Estimate Polychromasia Anisocytosis (manual) PT INR APTT Puncture Site Rr pCO2 52 H pO2 218 H HCO3 27.8 ABG pH 7.37 ABG Total CO2 31.7 H ABG O2 Saturation 99.3 H ABG Base Excess 3.6 H Eladio Test Pos ABG Potassium 2.9 L A-a O2 Difference 430.0 Respiratory Index 2.0 Glucose 95 Lactate 1.0 Liter Flow 15.0 FiO2 100.0 Sodium 138 139.0 Potassium 3.4 L Chloride 100 107.0 Carbon Dioxide 33 H Anion Gap 9 L BUN 11 Creatinine 0.6 L Est GFR ( Amer) > 60 Est GFR (Non-Af Amer) > 60 Random Glucose 101 Calcium 8.6 Phosphorus Magnesium Total Bilirubin 0.3 AST 17 ALT 25 Alkaline Phosphatase 86 Troponin I < 0.0120 NT-Pro-B Natriuret Pep 182 Total Protein 6.8 Albumin 3.7 Globulin 3.0 Albumin/Globulin Ratio 1.2 Arterial Blood Potassium 2.9 L Urine Color Straw Urine Clarity Clear Urine pH 5.0 Ur Specific [place] 1.006 Urine Protein Negative Urine Glucose (UA) Normal Urine Ketones Negative Urine Blood Negative Urine Nitrate Negative Urine Bilirubin Negative Urine Urobilinogen Normal Ur Leukocyte Esterase Neg Urine WBC (Auto) < 1 Influenza Typ A,B (EIA) 11/28/17 11/28/17 06:05 06:05 WBC 11.0 H RBC 4.64 Hgb 14.0 Hct 41.7 MCV 89.9 MCH 30.3 MCHC 33.7 RDW 14.0 Plt Count 270 MPV 8.4 Neut % (Auto) 89.9 H Lymph % (Auto) 8.5 L [place] % (Auto) 1.2 Eos % (Auto) 0.0 Baso % (Auto) 0.4 Neut # 9.9 H Lymph # 0.9 L [place] # 0.1 Eos # 0.0 Baso # 0.0 Neutrophils % (Manual) 88 H Band Neutrophils % 1 Lymphocytes % (Manual) 9 L Monocytes % (Manual) 2 Platelet Estimate Normal Polychromasia Slight Anisocytosis (manual) Slight PT INR APTT Puncture Site pCO2 pO2 HCO3 ABG pH ABG Total CO2 ABG O2 Saturation ABG Base Excess Eladio Test ABG Potassium A-a O2 Difference Respiratory Index Glucose Lactate Liter Flow FiO2 Sodium 136 Potassium 4.6 Chloride 97 L Carbon Dioxide 31 H Anion Gap 12 BUN 18 H Creatinine 0.7 Est GFR ( Amer) > 60 Est GFR (Non-Af Amer) > 60 Random Glucose 140 H Calcium 8.3 L Phosphorus 4.6 H Magnesium 1.7 Total Bilirubin 0.7 AST 14 ALT 25 Alkaline Phosphatase 84 Troponin I NT-Pro-B Natriuret Pep Total Protein 6.4 Albumin 3.5 Globulin 2.9 Albumin/Globulin Ratio 1.2 Arterial Blood Potassium Urine Color Urine Clarity Urine pH Ur Specific [place] Urine Protein Urine Glucose (UA) Urine Ketones Urine Blood Urine Nitrate Urine Bilirubin Urine Urobilinogen Ur Leukocyte Esterase Urine WBC (Auto) Influenza Typ A,B (EIA)
[2017-11-28] MEDS ORDERED: Fluticasone-Salmeterol 100-50mcg Diskus INH SCH (20:00)
--- NOTE | 2017-11-28 20:00 | CP.PCM.DIS ---
<LiliaDylann - Last Filed: 11/28/17 20:06> Provider - Provider Date of Admission: 11/27/17 18:41 Attending physician: Hammad Cano MD Primary care physician: PMD:Dr. Quijano Consults: Dr. Rogel (Pulmonary) Dr. Palacios (Cardiology) Time Spent in preparation of Discharge (in minutes): 45 Hospital Course - Lab Results Lab Results: Most Recent Lab Values WBC 11.0 K/uL (4.8-10.8) H 11/28/17 06:05 RBC 4.64 Mil/uL (3.80-5.20) 11/28/17 06:05 Hgb 14.0 g/dL (11.0-16.0) 11/28/17 06:05 Hct 41.7 % (34.0-47.0) 11/28/17 06:05 MCV 89.9 fL (81.0-99.0) 11/28/17 06:05 MCH 30.3 pg (27.0-31.0) 11/28/17 06:05 MCHC 33.7 g/dL (33.0-37.0) 11/28/17 06:05 RDW 14.0 % (11.5-14.5) 11/28/17 06:05 Plt Count 270 K/uL (130-400) 11/28/17 06:05 MPV 8.4 fL (7.2-11.7) 11/28/17 06:05 Neut % (Auto) 89.9 % (50.0-75.0) H 11/28/17 06:05 Lymph % (Auto) 8.5 % (20.0-40.0) L 11/28/17 06:05 Whitman % (Auto) 1.2 % (0.0-10.0) 11/28/17 06:05 Eos % (Auto) 0.0 % (0.0-4.0) 11/28/17 06:05 Baso % (Auto) 0.4 % (0.0-2.0) 11/28/17 06:05 Neut # 9.9 K/uL (1.8-7.0) H 11/28/17 06:05 Lymph # 0.9 K/uL (1.0-4.3) L 11/28/17 06:05 Whitman # 0.1 K/uL (0.0-0.8) 11/28/17 06:05 Eos # 0.0 K/uL (0.0-0.7) 11/28/17 06:05 Baso # 0.0 K/uL (0.0-0.2) 11/28/17 06:05 Neutrophils % (Manual) 88 % (50-75) H 11/28/17 06:05 Band Neutrophils % 1 % (0-2) 11/28/17 06:05 Lymphocytes % (Manual) 9 % (20-40) L 11/28/17 06:05 Monocytes % (Manual) 2 % (0-10) 11/28/17 06:05 Platelet Estimate Normal (NORMAL) 11/28/17 06:05 Polychromasia Slight 11/28/17 06:05 Anisocytosis (manual) Slight 11/28/17 06:05 PT 10.7 SECONDS (9.7-12.2) 11/27/17 17:14 INR 1.0 11/27/17 17:14 APTT 31 SECONDS (21-34) 11/27/17 17:14 Puncture Site Rr 11/27/17 17:51 pCO2 52 mm/Hg (35-45) H 11/27/17 17:51 pO2 218 mm/Hg (80-100) H 11/27/17 17:51 HCO3 27.8 mmol/L (21-28) 11/27/17 17:51 ABG pH 7.37 (7.35-7.45) 11/27/17 17:51 ABG Total CO2 31.7 mmol/L (22-28) H 11/27/17 17:51 ABG O2 Saturation 99.3 % (95-98) H 11/27/17 17:51 ABG Base Excess 3.6 mmol/L (-2.0-3.0) H 11/27/17 17:51 Eladio Test Pos 11/27/17 17:51 ABG Potassium 2.9 mmol/L (3.6-5.2) L 11/27/17 17:51 A-a O2 Difference 430.0 mm/Hg 11/27/17 17:51 Respiratory Index 2.0 11/27/17 17:51 Sodium 139.0 mmol/l (132-148) 11/27/17 17:51 Chloride 107.0 mmol/L (98-107) 11/27/17 17:51 Glucose 95 mg/dl (65-105) 11/27/17 17:51 Lactate 1.0 mmol/L (0.7-2.1) 11/27/17 17:51 Liter Flow 15.0 11/27/17 17:51 FiO2 100.0 % 11/27/17 17:51 Sodium 136 mmol/L (132-148) 11/28/17 06:05 Potassium 4.6 mmol/L (3.6-5.2) 11/28/17 06:05 Chloride 97 mmol/L (98-107) L 11/28/17 06:05 Carbon Dioxide 31 mmol/L (22-30) H 11/28/17 06:05 Anion Gap 12 (10-20) 11/28/17 06:05 BUN 18 mg/dL (7-17) H 11/28/17 06:05 Creatinine 0.7 mg/dL (0.7-1.2) 11/28/17 06:05 Est GFR ( Amer) > 60 11/28/17 06:05 Est GFR (Non-Af Amer) > 60 11/28/17 06:05 Random Glucose 140 mg/dL (65-105) H 11/28/17 06:05 Calcium 8.3 mg/dl (8.6-10.4) L 11/28/17 06:05 Phosphorus 4.6 mg/dL (2.5-4.5) H 11/28/17 06:05 Magnesium 1.7 mg/dL (1.6-2.3) 11/28/17 06:05 Total Bilirubin 0.7 mg/dL (0.2-1.3) 11/28/17 06:05 AST 14 U/L (14-36) 11/28/17 06:05 ALT 25 U/L (9-52) 11/28/17 06:05 Alkaline Phosphatase 84 U/L (38-126) 11/28/17 06:05 Troponin I < 0.0120 ng/mL (0.00-0.120) 11/27/17 17:14 NT-Pro-B Natriuret Pep 182 pg/mL (0-900) 11/27/17 17:14 Total Protein 6.4 g/dL (6.3-8.3) 11/28/17 06:05 Albumin 3.5 g/dL (3.5-5.0) 11/28/17 06:05 Globulin 2.9 gm/dL (2.2-3.9) 11/28/17 06:05 Albumin/Globulin Ratio 1.2 (1.0-2.1) 11/28/17 06:05 Arterial Blood Potassium 2.9 mmol/L (3.6-5.2) L 11/27/17 17:51 Urine Color Straw (YELLOW) 11/27/17 21:24 Urine Clarity Clear (Clear) 11/27/17 21:24 Urine pH 5.0 (5.0-8.0) 11/27/17 21:24 Ur Specific [place] 1.006 (1.003-1.030) 11/27/17 21:24 Urine Protein Negative mg/dL (NEGATIVE) 11/27/17 21:24 Urine Glucose (UA) Normal mg/dL (Normal) 11/27/17 21:24 Urine Ketones Negative mg/dL (NEGATIVE) 11/27/17 21:24 Urine Blood Negative (NEGATIVE) 11/27/17 21:24 Urine Nitrate Negative (NEGATIVE) 11/27/17 21:24 Urine Bilirubin Negative (NEGATIVE) 11/27/17 21:24 Urine Urobilinogen Normal mg/dL (0.2-1.0) 11/27/17 21:24 Ur Leukocyte Esterase Neg David/uL (Negative) 11/27/17 21:24 Urine WBC (Auto) < 1 /hpf (0-5) 11/27/17 21:24 Influenza Typ A,B (EIA) Negative for flu a/b (NEGATIVE) 11/27/17 17:01 - Hospital Course Hospital Course: PMD: Dr. Quijano Consults: Cardiology (Dr. Palacios), Pulmonary (Dr. Rogel) PRINCIPAL DISCHARGE DIAGNOSES: COPD Exacerbation [place] Bronchitits Arthirits TIA CC: HISTORY OF PRESENT ILLNESS: Patient is a 57-year-old female with a PMHx of COPD , Asthma, and Bronchitis who presents to the ED with complaints of progressive shortness of breath. Patient states her symptoms started a week ago and have been getting worse since then. She felt feverish on so on Monday she saw her PMD, Dr. Quijano. Her PMD gave her steroids and a Z-pack which she has been using for the past 3 days. She has been undergoing 4 nebulizer treatments each day and using her albuterol inhaler every few hours for the past 2 days. At baseline she does not use her albuterol or any nebulizer treatment. Patient denies any sick contacts. Reports receiving her yearly flu shot. Patient has been coughing up dark yellow/green phlegm for the past week. Denies any home O2 use. Patient uses 4 pillows to sleep at night for the past few weeks and says that if she sleeps flat, she feels like she will suffocate. She also has leg swelling for the past few months. Prior to this exacerbation, she could breathe normally at rest, but would be short of breath with minimal exertion, walking 1- 2 blocks. Denied fever, chills, headache, chest pain, abdominal pain, n/v/d/c, or urinary symptoms. PMHx: COPD, Asthma, and Bronchitis, TIA (2008) PSHx: Denied Meds: As per JAN, reviewed and confirmed All: NKDA SHx: Admits smoking 1 PPD x 15-20 years (no intention of stopping), social ETOH use, no illicit drug use FHx: Unremarkable SUMMARY OF COURSE: Patient is a 57 year old female who was admitted to [facility] from 11/27- for COPD exacerbation. The patient was treated with oxygen, steroids and antibiotics. Before completing treatment the patient signed out AMA. The patient stated that she didn't feel safe with her roommate and that she wasn't staying regardless. Advised the patient of the risks and she understood them. Advised the patient to return to the hospital for any worsening of her symptoms. Imaging: Chest xray: mild venous congestion, patching increased markings at both lung bases, bilateral hilar prominence. DISCHARGE MEDICATIONS: Patient left before being treated completely. Discharge Exam - Head Exam Head Exam: NORMAL INSPECTION, NORMOCEPHALIC - Respiratory Exam Respiratory Exam: Decreased Breath Sounds, Wheezes Discharge Plan - Follow Up Plan Condition: FAIR Disposition: AGAINST MEDICAL ADVICE <Adrian Velazquez - Last Filed: 11/29/17 06:59> Provider - Provider Date of Admission: 11/27/17 18:41 Attending physician: Hammad Cano MD Hospital Course - Lab Results Lab Results: Most Recent Lab Values WBC 11.0 K/uL (4.8-10.8) H 11/28/17 06:05 RBC 4.64 Mil/uL (3.80-5.20) 11/28/17 06:05 Hgb 14.0 g/dL (11.0-16.0) 11/28/17 06:05 Hct 41.7 % (34.0-47.0) 11/28/17 06:05 MCV 89.9 fL (81.0-99.0) 11/28/17 06:05 MCH 30.3 pg (27.0-31.0) 11/28/17 06:05 MCHC 33.7 g/dL (33.0-37.0) 11/28/17 06:05 RDW 14.0 % (11.5-14.5) 11/28/17 06:05 Plt Count 270 K/uL (130-400) 11/28/17 06:05 MPV 8.4 fL (7.2-11.7) 11/28/17 06:05 Neut % (Auto) 89.9 % (50.0-75.0) H 11/28/17 06:05 Lymph % (Auto) 8.5 % (20.0-40.0) L 11/28/17 06:05 Whitman % (Auto) 1.2 % (0.0-10.0) 11/28/17 06:05 Eos % (Auto) 0.0 % (0.0-4.0) 11/28/17 06:05 Baso % (Auto) 0.4 % (0.0-2.0) 11/28/17 06:05 Neut # 9.9 K/uL (1.8-7.0) H 11/28/17 06:05 Lymph # 0.9 K/uL (1.0-4.3) L 11/28/17 06:05 Whitman # 0.1 K/uL (0.0-0.8) 11/28/17 06:05 Eos # 0.0 K/uL (0.0-0.7) 11/28/17 06:05 Baso # 0.0 K/uL (0.0-0.2) 11/28/17 06:05 Neutrophils % (Manual) 88 % (50-75) H 11/28/17 06:05 Band Neutrophils % 1 % (0-2) 11/28/17 06:05 Lymphocytes % (Manual) 9 % (20-40) L 11/28/17 06:05 Monocytes % (Manual) 2 % (0-10) 11/28/17 06:05 Platelet Estimate Normal (NORMAL) 11/28/17 06:05 Polychromasia Slight 11/28/17 06:05 Anisocytosis (manual) Slight 11/28/17 06:05 PT 10.7 SECONDS (9.7-12.2) 11/27/17 17:14 INR 1.0 11/27/17 17:14 APTT 31 SECONDS (21-34) 11/27/17 17:14 Puncture Site Rr 11/27/17 17:51 pCO2 52 mm/Hg (35-45) H 11/27/17 17:51 pO2 218 mm/Hg (80-100) H 11/27/17 17:51 HCO3 27.8 mmol/L (21-28) 11/27/17 17:51 ABG pH 7.37 (7.35-7.45) 11/27/17 17:51 ABG Total CO2 31.7 mmol/L (22-28) H 11/27/17 17:51 ABG O2 Saturation 99.3 % (95-98) H 11/27/17 17:51 ABG Base Excess 3.6 mmol/L (-2.0-3.0) H 11/27/17 17:51 Eladio Test Pos 11/27/17 17:51 ABG Potassium 2.9 mmol/L (3.6-5.2) L 11/27/17 17:51 A-a O2 Difference 430.0 mm/Hg 11/27/17 17:51 Respiratory Index 2.0 11/27/17 17:51 Sodium 139.0 mmol/l (132-148) 11/27/17 17:51 Chloride 107.0 mmol/L (98-107) 11/27/17 17:51 Glucose 95 mg/dl (65-105) 11/27/17 17:51 Lactate 1.0 mmol/L (0.7-2.1) 11/27/17 17:51 Liter Flow 15.0 11/27/17 17:51 FiO2 100.0 % 11/27/17 17:51 Sodium 136 mmol/L (132-148) 11/28/17 06:05 Potassium 4.6 mmol/L (3.6-5.2) 11/28/17 06:05 Chloride 97 mmol/L (98-107) L 11/28/17 06:05 Carbon Dioxide 31 mmol/L (22-30) H 11/28/17 06:05 Anion Gap 12 (10-20) 11/28/17 06:05 BUN 18 mg/dL (7-17) H 11/28/17 06:05 Creatinine 0.7 mg/dL (0.7-1.2) 11/28/17 06:05 Est GFR ( Amer) > 60 11/28/17 06:05 Est GFR (Non-Af Amer) > 60 11/28/17 06:05 Random Glucose 140 mg/dL (65-105) H 11/28/17 06:05 Calcium 8.3 mg/dl (8.6-10.4) L 11/28/17 06:05 Phosphorus 4.6 mg/dL (2.5-4.5) H 11/28/17 06:05 Magnesium 1.7 mg/dL (1.6-2.3) 11/28/17 06:05 Total Bilirubin 0.7 mg/dL (0.2-1.3) 11/28/17 06:05 AST 14 U/L (14-36) 11/28/17 06:05 ALT 25 U/L (9-52) 11/28/17 06:05 Alkaline Phosphatase 84 U/L (38-126) 11/28/17 06:05 Troponin I < 0.0120 ng/mL (0.00-0.120) 11/27/17 17:14 NT-Pro-B Natriuret Pep 182 pg/mL (0-900) 11/27/17 17:14 Total Protein 6.4 g/dL (6.3-8.3) 11/28/17 06:05 Albumin 3.5 g/dL (3.5-5.0) 11/28/17 06:05 Globulin 2.9 gm/dL (2.2-3.9) 11/28/17 06:05 Albumin/Globulin Ratio 1.2 (1.0-2.1) 11/28/17 06:05 Arterial Blood Potassium 2.9 mmol/L (3.6-5.2) L 11/27/17 17:51 Urine Color Straw (YELLOW) 11/27/17 21:24 Urine Clarity Clear (Clear) 11/27/17 21:24 Urine pH 5.0 (5.0-8.0) 11/27/17 21:24 Ur Specific [place] 1.006 (1.003-1.030) 11/27/17 21:24 Urine Protein Negative mg/dL (NEGATIVE) 11/27/17 21:24 Urine Glucose (UA) Normal mg/dL (Normal) 11/27/17 21:24 Urine Ketones Negative mg/dL (NEGATIVE) 11/27/17 21:24 Urine Blood Negative (NEGATIVE) 11/27/17 21:24 Urine Nitrate Negative (NEGATIVE) 11/27/17 21:24 Urine Bilirubin Negative (NEGATIVE) 11/27/17 21:24 Urine Urobilinogen Normal mg/dL (0.2-1.0) 11/27/17 21:24 Ur Leukocyte Esterase Neg David/uL (Negative) 11/27/17 21:24 Urine WBC (Auto) < 1 /hpf (0-5) 11/27/17 21:24 Influenza Typ A,B (EIA) Negative for flu a/b (NEGATIVE) 11/27/17 17:01 Attending/Attestation - Attestation I have personally seen and examined this patient.: Yes I have fully participated in the care of the patient.: Yes I have reviewed all pertinent clinical information, including history, physical exam and plan: Yes Notes (Text): 11/29/17 06:58 Medical attending: I was later notified that the patient decided to leave [facility]. During the day that I saw her here we had an extensive discussion with regards to her smoking. She is made aware that she has significant issues with oxygen desaturation in particular whenever she participates with physical therapy I did explain to her that at some point she's continued home oxygen and we were considering getting ABG as well as further physical therapy to document low O2 desaturations. However later on later in the afternoon I was notified that the patient decided to leave AMA from the hospital. We hope she will stop smoking. thank you Adrian Velazquez
[2017-11-28] MEDS ORDERED: Potassium Chloride 20 mEq ER Tab PO ONE (20:35)
--- NOTE | 2017-11-28 23:00 | CARD ---
APPROVED REPORT EXAM: Two-dimensional and M-mode echocardiogram with Doppler and color Doppler. Other Information Quality : GoodRhythm : INDICATION Dyspnea Chest Pain Congestive Heart Failure RISK FACTORS Diabetes 2D DIMENSIONS IVSd0.8 (0.7-1.1cm)LVDd4.1 (3.9-5.9cm) PWd0.6 (0.7-1.1cm)LVDs2.5 (2.5-4.0cm) FS (%) 39.6 %LVEF (%)70.7 (>50%) M-Mode DIMENSIONS Left Atrium (MM)4.01 (2.5-4.0cm)Aortic Root2.95 (2.2-3.7cm) Aortic Cusp Exc.2.09 (1.5-2.0cm) Mitral Valve MV E Vbauddtp190.6cm/sMV A Qzgwxihs099.9cm/sE/A ratio1.0 TDI E/Lateral E'0.0E/Medial E'0.0 Tricuspid Valve TR Peak [id number]/sTR Peak Gr.[id number] LEFT VENTRICLE The left ventricle is normal size. There is normal left ventricular wall thickness. The left ventricular function is normal. The left ventricular ejection fraction is within the normal range. There is normal LV segmental wall motion. The left ventricular diastolic function is normal. RIGHT VENTRICLE The right ventricle is normal size. ATRIA The left atrium size is normal. AORTIC VALVE The aortic valve is normal in structure. MITRAL VALVE The mitral valve is normal in structure. TRICUSPID VALVE There is trace to mild tricuspid regurgitation. <Conclusion> Normal LV systolic function. Normal chamber size. Trace TR.
--- NOTE | 2017-11-28 23:08 | CARD ---
APPROVED REPORT EKG Measurement Heart [id number] MI [id number] <Conclusion> Normal sinus rhythm Possible Left atrial enlargement Rightward axis Prolonged QT Abnormal ECG
[2017-11-29] MEDS ORDERED: Tiotropium 18 mcg Cap For Inhalation INH SCH (08:00)
== END 2017-11-28 19:00 | disposition left against medical advice (07) ==
LOC: C.ER 16:21 → C.9E 18:41 → INTOOBSV 18:41 → C.6T 20:19
PROVIDERS: ADMIT Internal Medicine; ATTEND Internal Medicine
DX: J44.1 Chronic obstructive pulmonary disease with (acute) exacerbation (principal); I50.9 Heart failure, unspecified; F17.210 Nicotine dependence, cigarettes, uncomplicated; E78.00 Pure hypercholesterolemia, unspecified; E11.9 Type 2 diabetes mellitus without complications; D72.829 Elevated white blood cell count, unspecified; H40.9 Unspecified glaucoma; M19.012 Primary osteoarthritis, left shoulder; T38.0X5A Adverse effect of glucocorticoids and synthetic analogues, initial encounter; Z86.73 Personal history of transient ischemic attack (TIA), and cerebral infarction without residual deficits; Z87.01 Personal history of pneumonia (recurrent); Z90.49 Acquired absence of other specified parts of digestive tract; Z90.710 Acquired absence of both cervix and uterus
CPT/HCPCS: 36415; 71045; 80053; 81001; 82803; 83735; 83880; 84100; 84484; 85025; 85610; 85730; 87804; 93005; 93306; 94640; 94660; 96372; 96374; 96375; 96376; 97116; 97162; 99285; G0378; G8978; G8979; J1650; J1940; J2920; J2930

== ENCOUNTER 2018-08-25 16:08 | Emergency (ER) | payer MEDICARE ==
[2018-08-25 16:08] VITALS: BMI 29.2
[2018-08-25 16:17] VITALS: BP 111/64; PULSE 88; TEMP 97.8; O2SAT 92
[2018-08-25] MEDS ORDERED: Tdap Vaccine 0.5 ml Vial (10-64 yrs) IM ONE (16:38)
--- NOTE | 2018-08-25 16:41 | C.PDOC ---
History Of Present Illness 58 yo female w/PMHx of COPD, come in for evaluation of Left index finger laceration sustained at home, while cooking, with knife. Pt reports, (+) pain, mild bloody oozing. Otherwise, pt denies deformity, weakness, sensory or vascular deficits to Left index finger. Ambulate to Ed for evaluation, not in any apparent distress. Time Seen by Provider: 08/25/18 16:16 Chief Complaint (Nursing): Abnormal Skin Integrity Past Medical History Vital Signs: Last Vital Signs Temp 97.8 F 08/25/18 16:14 Pulse 88 08/25/18 16:14 Resp 22 08/25/18 16:14 BP 111/64 08/25/18 16:14 Pulse Ox 92 L 08/25/18 16:14 - Medical History PMH: Arthritis, Asthma, Bronchitis, COPD, Diabetes, Emphysema, Gall Bladder Disease (cholecysectomy), Hypercholesterolemia, Pneumonia, TIA Denies: Chronic Kidney Disease Surgical History: Cholecystectomy - [facility] Procedures BILAT ENDOS OCC TUBE NEC (04/09/99) ESOPHAGOGASTRODUODENOSCOPY [EGD] W/CLOSED BIOPSY (05/01/06) INJECT/INFUSE NEC (05/04/06) INTRODUCTION OF SERUM/TOX/VACCINE INTO MUSCLE, PERC APPROACH (11/11/15) Family History: States: [place] (brother a short while ago) - Social History Hx Tobacco Use: Yes Hx Alcohol Use: No Hx Substance Use: No - Immunization History Hx Tetanus Toxoid Vaccination: No Hx Influenza Vaccination: Yes Hx Pneumococcal Vaccination: Yes Physical Exam - Physical Exam Appears: Well, Non-toxic, No Acute Distress Skin: Normal Color, Warm, No Rash, Other (left distal 2nd phalanx superficial laceration 1cm length dorsal aspect just below nail. FAROM, no wound FB, no ligament or tendon injury.) Extremity: Normal ROM (Left hand), No Tenderness, Capillary Refill (less than 2sec to left hand), No Deformity, No Swelling Pulses: Left Radial: Normal Neurological/Psych: Oriented x3, Normal Speech, Normal Motor, Normal Sensation, Normal Reflexes ED Course And Treatment O2 Sat by Pulse Oximetry: 92 Progress Note: On re-eval, pt is afebrile, hemodynamicaly stable. Non-toxic. left hand: laceration over Left index repaired with skin adhesive/steristrips. FAROM, no neurovascular deficits, no deformity. tetanus given. Pt advised on wound care. ref. to f/u with PMD in 2-3 days for re-eavl. returbn if any new changes. Laceration - Laceration Repair left index Wound Length (In cm): 1cm Description Of Wound: Linear Wound Cleansed With: Betadine Wound Examination: Irrigated With Saline, No FB With Wound Exploration, No Tendon Injury With Wound Exploration Wound Closure: Steri Strips, Skin Glue Wound Complexity: Simple Disposition Counseled Patient/Family Regarding: Diagnosis, Need For Followup - Disposition Referrals: Lamine Quijano MD [Medical Doctor] - Disposition: HOME/ ROUTINE Disposition Time: 16:42 Condition: STABLE Additional Instructions: Light duty to injured finger Avoid water exposure for 3-4 days Follow up with PMD as need for re-evaluation. return if any new changes. Instructions: Laceration Repair With Glue (DC) Forms: [employer] ([place]) - Clinical Impression Clinical Impression: Laceration of finger
[2018-08-25 17:12] VITALS: RESP 18
== END 2018-08-25 17:15 | disposition home or self-care (01) ==
LOC: C.ER 16:08
DX: S61.211A Laceration without foreign body of left index finger without damage to nail, initial encounter (principal); W26.0XXA Contact with knife, initial encounter; Y93.G3 Activity, cooking and baking; Y92.009 Unspecified place in unspecified non-institutional (private) residence as the place of occurrence of the external cause